=== PATIENT | male | born 1990 | race Caucasian/White ===

== ENCOUNTER 2019-04-21 05:35 | Observation (INO) | payer OTHER ==
[2019-04-19 13:15] LABS: EOSINOPHILS # (AUTO) 0.1 (0.0-0.4); EOSINOPHILS % 2.6 % (0.0-6.0); HEMATOCRIT 40.8 % (38.2-49.6); HEMOGLOBIN 14.3 g/dL (14.0-18.0); LYMPHOCYTES % 24.8 % (18.0-39.1); MEAN CORPUSCULAR HEMOGLOBIN 32.8 pg (28-32); MEAN CORPUSCULAR VOLUME 93.6 fL (81-99); MONOCYTES # (AUTO) 0.3 (0.2-0.8); MONOCYTES % 8.5 % (4.4-11.3); NEUTROPHILS # (AUTO) 2.4 (2.1-6.9); NEUTROPHILS % 62.8 % (38.7-80.0); PLATELET COUNT 152 x10e3/uL (140-360); RED BLOOD COUNT 4.36 x10e6/uL (4.3-5.7); RED CELL DISTRIBUTION WIDTH 11.9 % (11.7-14.4)
[2019-04-19 13:24] LABS: INR 0.92; PROTHROMBIN TIME 12.8 seconds (11.9-14.5)
[2019-04-19 13:45] LABS: ANION GAP 18.6 mmol/L (8-16); BLOOD UREA NITROGEN 5 mg/dL (7-26); BUN/CREATININE RATIO 7 (6-25); CALCIUM 9.3 mg/dL (8.4-10.2); CARBON DIOXIDE 22 mmol/L (22-29); CHLORIDE 104 mmol/L (98-107); CREATININE, SERUM 0.76 mg/dL (0.72-1.25); EST GLOMERULAR FILTRATION RATE > 60 ML/MIN (60-); GLUCOSE 76 mg/dL (74-118); POTASSIUM 4.6 mmol/L (3.5-5.1); SODIUM 140 mmol/L (136-145)
--- NOTE | 2019-04-19 13:47 | Diagnostic Imaging Report ---
EXAM: CHEST 2 VIEWS, PA and lateral DATE: 04/19/2019 Time stamp on exam: 12:40 PM INDICATION: Preoperative for spine surgery COMPARISON: None FINDINGS: LINES/TUBES: None LUNGS: No consolidations or edema. PLEURA: No effusions or pneumothorax. HEART AND MEDIASTINUM: Normal size and contour. BONES AND SOFT TISSUES: No acute findings. IMPRESSION: No acute thoracic abnormality. Signed by: Dr. Ariel Vega DO on 04/19/2019 1:44 PM
[~2019-04-21] VITALS: Ht 177.8 cm; Wt 71.7 kg
[~2019-04-21 05:35] MED LIST: AMLODIPINE BESYL5 MG PO; MELOXICAM7.5 MG PO; METHOCARBAMOL750 MG PO; PREDNISONE10 MG PO; ULTRAM50 MG PO
--- OUTSIDE RECORDS SUMMARY | 2019-04-21 05:38 | XMS REPORT ---
Author Author [facility] Address Unknown Phone Unavailable Care Team Providers Care Cask Maker Name Role Phone JOSHUA NICHOLSON Unavailable Unavailable Problems This patient has no known problems. Allergies, Adverse Reactions, Alerts This patient has no known allergies or adverse reactions. Medications This patient has no known medications. Results Test Description Test Time Test Comments Text Results Atomic Results Result Comments CHEST 2 VIEWS 2019-04-19 13:43:00 [place] [address] Patient Name: MARTINA SANTANA MR #: [id number] : 1990 Age/Sex: 28/M Req #: [id number] [facility] Physician: Ordered by: JOSHUA NICHOLSON MD Report #: [id number] Location: OR Room/Bed: Procedure: [id number] DX/CHEST 2 VIEWS Exam Date: 04/19/19 Exam Time: 1220 REPORT STATUS: Signed EXAM: CHEST 2 VIEWS, PA and lateral DATE: 04/19/2019 Time stamp on exam: 12:40 PM INDICATION: Preoperative for spine surgery COMPARISON: None FINDINGS: LINES/TUBES: None LUNGS: No consolidations or edema. PLEURA: No effusions or pneumothorax. HEART AND MEDIASTINUM: Normal size and contour. BONES AND SOFT TISSUES: No acute findings. IMPRESSION: No acute thoracic abnormality. Signed by: Dr. Lesley Vega DO on 04/19/2019 1:44 PM Dictated By: LESLEY VEGA DO 1344 Transcribed By: DARIEN on 04/19/19 1341 COPY TO: JOSHUA NICHOLSON MD
--- OUTSIDE RECORDS SUMMARY | 2019-04-21 05:38 | XMS REPORT | Clinical Summary ---
Author Author [facility] Address Unknown Phone Unavailable Care Team Providers Care Ironworker Helper [employer] Name Role Phone Asked, No Pcp PCP Unavailable Allergies Comments Active Allergy Reactions Severity Noted Date Hydrocodone 03/22/2019 Medications End Date Status Medication Sig Dispensed Refills Start Date Active methocarbamol (ROBAXIN) Take 1 tablet 20 tablet 0 500 MG tablet (500 mg 9 total) by mouth every 6 (six) hours as needed for muscle spasms for up to 20 doses. Active meloxicam (MOBIC) 15 mg Take 1 tablet 10 tablet 0 tablet (15 mg total) 9 by mouth daily as needed for mild pain for up to 10 doses. Active Problems Not on file Encounters Care Team Description Date Type Specialty Denice, Jose Barton Jr., MD Duarte, Anibal Ritchie, MOBILE DEVICE ENGINEER-C Left shoulder pain, unspecified chronicity (Primary Dx); Trapezius muscle spasm 03/22/2019 Emergency Emergency Medicine after 04/20/2018 Social History Date Tobacco Use Types Packs/Day Years Used Unknown If Ever Smoked Smokeless Tobacco: Never Used Alcohol Use Drinks/Week oz/Week Comments Yes Sex Assigned at Date Recorded Not on file Industry Job Start Date Occupation Not on file Not on file Not on file Travel End Travel History Travel Start No recent travel history available. Last Filed Vital Signs Time Taken Vital Sign Reading 03/22/2019 11:50 PM CDT Blood Pressure 120/78 03/22/2019 11:50 PM CDT Pulse 83 03/22/2019 11:50 PM CDT Temperature 36.6 C (97.9 F) 03/22/2019 11:50 PM CDT Respiratory Rate 16 03/22/2019 11:50 PM CDT Oxygen Saturation 99% - Inhaled Oxygen - Concentration 03/22/2019 9:12 PM CDT Weight 74.8 kg (165 lb) 03/22/2019 9:12 PM CDT Height 177.8 cm (5' 10") 03/22/2019 9:12 PM CDT Body Mass Index 23.68 Plan of Treatment Health Maintenance Due Date Last Done Comments INFLUENZA VACCINE 05/26/2019 Results Not on fileafter 04/20/2018 Insurance Type Payer Benefit Subscriber ID Effective Phone Address Plan / Dates Group HMO CIGNA CIGNA OPEN xxxxxxxxx 2017-P ACCESS/NET resent WORK Advance Directives Patient has advance care planning documents on file. For more information, stephanie koch contact: Daniel Torres [address] [place] [address]
[2019-04-21] MEDS ORDERED: THROMBIN FOR SOLN 5,000 UNIT VIAL ONE (06:41)
[2019-04-21] MEDS ORDERED: BUPIVACAINE 0.5%/EPI 30 ML SDV INJ ONE (06:41)
[2019-04-21] MEDS ORDERED: BACITRACIN 50,000 UNIT VIAL ONE (06:41)
[2019-04-21] MEDS ORDERED: CEFAZOLIN SOD 1 GM/NS 50ML 50 ML IV ONE (06:42)
[2019-04-21] MEDS ORDERED: LABETALOL HCL 0 ML ONE (06:59)
[2019-04-21] MEDS ORDERED: ACETAMINOPHEN 1000 MG/100 ML 100 ML IV ONE (07:28)
[2019-04-21] MEDS ORDERED: LIDOCAINE HCL (LTA) 4 ML SOLN ONE (07:28)
[2019-04-21] MEDS ORDERED: IBUPROFEN 800MG/ 250ML 250 ML IV ONE (07:28)
[2019-04-21] MEDS ORDERED: ZOLPIDEM TARTRATE 5 MG TAB PO PRN (10:30)
[2019-04-21] MEDS ORDERED: AMLODIPINE BESYLATE 5 MG TAB PO PRN (10:30)
[2019-04-21] MEDS ORDERED: HYDROMORPHONE 2MG/ML 2 MG/ML ML IV PRN ×2 (10:30→13:00)
[2019-04-21] MEDS ORDERED: ONDANSETRON HCL INJ 2MG/ML 2ML 2 MG/ML VIAL IV PRN (10:30)
[2019-04-21] MEDS ORDERED: OXYCODONE/ACETAMINOPHEN 5-325 1 EACH TABLET PO PRN ×2 (10:30→13:00)
[2019-04-21] MEDS ORDERED: CEPACOL SORE THROAT LOZENGES PO PRN (10:30)
[2019-04-21] MEDS ORDERED: PROMETHAZINE HCL (IM) 25 MG/ML VIAL IM PRN (10:30)
[2019-04-21] MEDS ORDERED: MORPHINE SULFATE 5 MG/ML VIAL IM PRN (10:30)
[2019-04-21] MEDS ORDERED: TRAMADOL HCL 50 MG TAB PO PRN ×2 (10:30→13:00)
[2019-04-21] MEDS ORDERED: MAGNESIUM/ALUMINUM/SIMETHICONE 30 ML UDC PO PRN (10:30)
[2019-04-21] MEDS ORDERED: ACETAMINOPHEN 325 MG TAB PO PRN (10:30)
[2019-04-21] MEDS ORDERED: CARISOPRODOL 350 MG TAB PO PRN (10:30)
--- OUTSIDE RECORDS SUMMARY | 2019-04-21 10:42 | XMS REPORT | Clinical Summary ---
Author Author [facility] Address Unknown Phone Unavailable Care Team Providers Care Adult Nurse Practitioner Name Role Phone Asked, No Pcp PCP [...] Jose Barton Jr., MD Duarte, Anibal Ritchie, [employer] TEACHER-C Left shoulder pain, unspecified chronicity (Primary Dx); [...] more information, stephanie koch contact: Daniel Torres [address] [place] [address]
--- NOTE | 2019-04-21 11:03 | NUR ---
Pt arrived from PACU via stretcher, resp WNL, A&O x3. Soft C-collar in place. IV patent, IV fluids being administered at this time. Pt stated having pain of 11/10. Bed in lowest position, call light within reach. Pt stated understanding to call for assistance.
--- NOTE | 2019-04-21 11:15 | NUR ---
Pharmacy contacted regarding pain medication orders due to allergies. paged at this time.
[2019-04-21] MEDS: LACTATED RINGER'S 1,000 ML IV SCH ×2 (11:19→19:45)
--- NOTE | 2019-04-21 12:22 | NUR ---
returned call. Gave okay to administer pain medications due to allergy.
[2019-04-21 13:05] VITALS: BP 133/98
[2019-04-21 13:10] VITALS: BP 133/98
[2019-04-21] MEDS: CEFAZOLIN SOD 1 GM/NS 50ML 50 ML IV SCH ×2 (14:17→22:19)
[2019-04-21] MEDS ORDERED: DEXAMETHASONE SOD PHOS INJ 4 MG/ML VIAL ONE (14:19)
[2019-04-21] MEDS ORDERED: ONDANSETRON HCL INJ 2MG/ML 2ML 2 MG/ML VIAL ONE (14:19)
[2019-04-21] MEDS ORDERED: NEOSTIGMINE 5 MG/5ML SYR ONE (14:19)
[2019-04-21] MEDS ORDERED: GLYCOPYRROLATE INJ 1MG/ 5 ML SYR ONE (14:19)
[2019-04-21] MEDS ORDERED: PROPOFOL IV EMULSION 10 MG/ML 20 ML VIAL ONE (14:19)
[2019-04-21] MEDS ORDERED: LIDOCAINE HCL 2% JELLY 5 ML TUBE ONE (14:19)
[2019-04-21] MEDS ORDERED: SEVOFLURANE INHAL SOLN 250 ML PEN BTL ONE (14:19)
[2019-04-21] MEDS ORDERED: ROCURONIUM BROMIDE 10 MG/ML 5ML VIAL ONE (14:19)
[2019-04-21] MEDS ORDERED: LIDOCAINE HCL 2% LOCAL INJ 5 ML SDV VIAL INJ ONE (14:19)
--- NOTE | 2019-04-21 16:14 | Operative Report ---
DATE OF PROCEDURE: 04/21/2019 SURGEON: Jose Abbott MD PREOPERATIVE DIAGNOSIS: C6-7 disk herniation with radiculopathy, M50.123. POSTOPERATIVE DIAGNOSIS: C6-7 disk herniation with radiculopathy, M50.123. PROCEDURE: 1. C6-7 anterior cervical diskectomy and allograft fusion, 60697. 2. Preparation of MTF corticocancellous allograft, 44184. 3. C6-7 anterior cervical plating with Synthes ZPN plate, 76336. ANESTHESIA: General. INDICATIONS: The patient is a 28-year-old man, who presents with a severe left C7 radiculopathy refractory to conservative treatment due to a left-sided C6-7 disk herniation. He was taken to the operating room for anterior cervical decompression and fusion. PROCEDURE IN DETIAL: After induction of general anesthesia, the patient was placed on the operating table in supine position. The right side of neck was prepped and draped in sterile fashion. The fluoroscopic C-arm was positioned in cross-table lateral orientation. A small transverse incision was created on right side of neck superimposed on the C6-7 disk space as determined by fluoroscopy. The platysma was divided in line with the incision. A subplatysmal dissection was carried out and avascular plane of dissection was developed medial to the sternocleidomastoid muscle and was followed medial to the carotid sheath to the anterior border of the cervical spine. The deep cervical fascia was opened. The esophagus was retracted to the left. The attachments of longus colli muscles to the anterolateral aspects of vertebral bodies of C6 and C7 were divided. The anterior longitudinal ligament was resected. Camden posts were inserted into C6 and C7 and the Camden distractor was used to distract the disk space. The anterior annulus of the disk was incised with a #11 blade. The contents of the disks were thoroughly evacuated with angled curettes and pituitary rongeurs. The posterior osteophytes were drilled with a 2 mm cutting bur until they were completely removed. The posterior annulus of the disk and the posterior longitudinal ligament were resected. A large amount of extruded disk material which had traveled into the left C7 neural foramina was mobilized with a micro ball probe and removed. The medial aspect of the uncinate process was resected on the left side to fully expose any compressed origin of the left C7 nerve root. The dura was fully exposed and decompressed from right to left. After satisfactory decompression had been achieved, the endplates were prepared for fusion. A piece of MTF corticocancellous allograft measuring 8 mm in thickness was selected and prepared in saline and loaded onto a Synthes ZPN plate. The construct was inserted into the C6-7 disk space under distraction and fluoroscopic guidance. The distraction was released and distraction posts were removed. The plate was then screwed to the endplates of C6 and C7 with two pairs of 14 mm screws. All screws were locked and excellent construct was obtained. The wound was copiously irrigated with bacitracin solution. Meticulous hemostasis was secured. The retractor was removed. The platysma was closed with 3-0 Vicryl sutures. The skin was closed with 4-0 Monocryl sutures in subcuticular fashion. Steri-Strips and dressing were applied. The patient was awakened, extubated, and taken to postanesthesia care unit in stable condition. No intraoperative complications were encountered. ESTIMATED BLOOD LOSS: 10 mL. Jose Abbott MD PP/SALLIE /[id number]
[2019-04-21 17:16] VITALS: BP 136/99
[2019-04-21] MEDS ORDERED: FENTANYL CITRATE/PF 100MCG/2 ML INJ ONE (18:24)
[2019-04-21] MEDS ORDERED: MIDAZOLAM HCL 2 MG/2 ML VIAL ONE (18:24)
--- NOTE | 2019-04-21 19:07 | NUR ---
received patient aaox4, stable condition, soft collar on. no needs voiced at this time. will continue to monitor patient. bed locked and in lowest position, call light within easy reach.
[2019-04-21 20:00] VITALS: BP 144/93
[2019-04-21 21:02] VITALS: BP 144/93
[2019-04-22] VITALS: BP 135/84
[2019-04-22 04:00] VITALS: BP 132/89
[2019-04-22] MEDS: CEFAZOLIN SOD 1 GM/NS 50ML 50 ML IV SCH (06:04)
[2019-04-22 08:03] VITALS: BP 128/85
[2019-04-22 08:50] VITALS: BP 128/85
[2019-04-22] MEDS ORDERED: MELOXICAM 7.5 MG TAB PO SCH (09:00)
--- NOTE | 2019-04-22 09:04 | NUR ---
dc instructions and prescription for pain given. pt verbalized understanding removed dressing to neck per orders , steri strips left in place and collar iv dc pressure dressing applied and taped pt is now off unit to home
== END 2019-04-22 09:02 | disposition home or self-care (01) ==
LOC: OR 05:35 → PACU V 10:24 → MED/SURG 11:03
PROVIDERS: ADMIT Neurological Surgery; ATTEND Neurological Surgery
DX: M50.123 Cervical disc disorder at C6-C7 level with radiculopathy (principal); I10 Essential (primary) hypertension; F41.9 Anxiety disorder, unspecified
CPT/HCPCS: 20931; 22551; 22845; 36415; 71046; 77003; 80048; 85025; 85610; 85730; 86850; 86900; 88304; 93005; C1713 ×2; C9359; G0378 ×2; J0131; J0690 ×2; J1100; J2001 ×2; J2250; J2405; J2704; J3490; J7121; J3010

== ENCOUNTER → 2019-05-19 | Outpatient (CLI) | payer OTHER ==
--- NOTE | 2019-05-19 12:35 | Diagnostic Imaging Report ---
Cervical spine, 5 views. History: Post fusion. Discussion: The cervical spine is visualized on the lateral view from C1 through the top of C7. Anterior fusion hardware is present at C6-C7 in anatomic alignment. Flexion and extension views demonstrate no evidence of subluxation. There is normal lordotic curvature. There is no evidence of fracture, subluxation, or posterior splaying. The intervertebral disc spaces are normal. The prevertebral soft tissues are within normal limits. IMPRESSION: Status post C6-C7 anterior fusion in anatomic alignment. Signed by: Joreg L Valente on 05/19/2019 12:31 PM
== END ==
LOC: RAD 11:00
PROVIDERS: ATTEND Neurological Surgery
DX: M50.20 Other cervical disc displacement, unspecified cervical region (principal); M43.22 Fusion of spine, cervical region
CPT/HCPCS: 72050